=== PATIENT | female | born 1950 | race Caucasian/White ===

== ENCOUNTER 2019-04-20 13:44 | Outpatient (CLI) | payer MEDICARE ==
--- NOTE | 2019-04-20 14:40 | ULT ---
THYROID SONOGRAM: HISTORY: Nodule. FINDINGS: The right thyroid lobe is 3.8 cm in length with a normal appearance. The isthmus is 0.2 cm thick. The left thyroid lobe measures up to 4.7 cm. At the superficial margin of the mid portion of the left thyroid lobe is a very well circumscribed, oval, very slight heterogeneous and isoechoic nodule that is 1.0 cm x 0.8 cm x 0.7 cm in greatest diameters. No internal calcifications. IMPRESSION: Benign appearing nodule within the anterior aspect of the left thyroid lobe. TI-RADS 3 - mildly suspicious. Given the small size, no further imaging followup is necessary. POS: [facility]
== END 2019-04-20 13:45 | disposition home or self-care (01) ==
LOC: BICULT 13:44
PROVIDERS: ATTEND Internal Medicine Endocrinology, Diabetes & Metabolism
DX: E04.8 Other specified nontoxic goiter (principal)
CPT/HCPCS: 76536

== ENCOUNTER 2021-04-19 13:14 | Outpatient (CLI) | payer OTHER | END 2021-04-19 13:15 | disposition home or self-care (01) | LOC: BICULT 13:14 | PROVIDERS: ATTEND Internal Medicine Endocrinology, Diabetes & Metabolism | DX: E04.8 Other specified nontoxic goiter (principal); R22.0 Localized swelling, mass and lump, head | CPT/HCPCS: 76536 ==